=== PATIENT | female | born 1980 | race African-American/Black ===

== ENCOUNTER 2023-07-04 21:25 | Emergency (ER) | payer OTHER ==
[2023-07-04 21:32] VITALS: BP 149/90; PULSE 81; RESP 18; TEMP 98; BMI 33.9
[2023-07-04] MEDS ORDERED: ACETAMINOPHEN 325 MG TABLET (FP) PO ONE (21:55)
[2023-07-04] MEDS ORDERED: IBUPROFEN 400 MG TABLET (FP) PO ONE ×2 (21:55→22:26)
[2023-07-04] MEDS ORDERED: ACETAMINOPHEN 500 MG TABLET (FP) ONE (22:26)
== END 2023-07-05 01:17 | disposition home or self-care (01) ==
LOC: JER 21:25
DX: M25.562 Pain in left knee (principal); M25.552 Pain in left hip; W18.39XA Other fall on same level, initial encounter
CPT/HCPCS: 73502-TC-LT-FY; 73552-TC-LT-FY; 73562-TC-LT-FY; 99284-25